=== PATIENT | male | born 1955 | race Caucasian/White ===

== ENCOUNTER 2020-11-25 14:32 | Emergency (ER) | payer BC ==
[~2020-11-25] VITALS: Ht 180.3 cm; Wt 84.8 kg
[2020-11-25] MEDS ORDERED: MEDROL DOSEPAK4 MG PO (16:24)
== END 2020-11-25 16:32 | disposition home or self-care (01) ==
LOC: ED 14:32
DX: M13.842 Other specified arthritis, left hand (principal); M13.841 Other specified arthritis, right hand; F17.200 Nicotine dependence, unspecified, uncomplicated